=== PATIENT | female | born 1990 | race African-American/Black ===

== ENCOUNTER 2018-05-06 09:34 | Inpatient (IN) | payer OTHER ==
[2018-05-06] MEDS: NS / Oxytocin 40 units/1000ml 1,000 ML IV SCH ×2 (09:35→10:27)
--- NOTE | 2018-05-06 09:43 | PDOC.LDHP ---
Labor and Delivery H&P Chief complaint: contractions, loss of fluid HPI: [facility] at 8 cm in active labor. srom clear on ambulance. pnc at [facility] aidee reports no complications Current gestational age (weeks): 37 Dating criteria: other (pt report) Grav: 4 Para: 3 ( 3 ) Current complications: none Abnormal US findings: No Past Medical History: none Current medications: pre- vitamins Previous surgical history: none Allergies/Adverse Reactions: Allergies Allergy/AdvReac Type Severity Reaction Status Date / Time No Known Allergies Allergy Verified 05/03/17 20:12 Social history: none - Physical Exam Vital signs reviewed and normal: yes General: breathing through contractions Heart: RRR Lungs: nonlabored breathing Abdomen: NTTP Extremeties: no edema FHT: category 1 - Vaginal Exam cm dilated: 10 Effacement: 100% Station: 3+ - OB Labs Blood type: unknown RH: unknown Antibody Screen: unknown HIV: unknown RPR: unknown HEPSAg: unknown 1 hour GCT: unknown GBS: unknown Urine drug screen: not done Rubella: non-immune - Assessment L&D Assessment: term rupture in membranes - Plan Plan: admit to L&D (delivery imminent)
[2018-05-06] MEDS ORDERED: Diphenoxylate HCl/Atropine Tablet PO PRN (09:45)
[2018-05-06] MEDS ORDERED: Ondansetron HCl/PF 4 MG/2 ML Vial IVP PRN ×2 (09:45→09:51)
[2018-05-06] MEDS ORDERED: Lactated Ringer's 1,000 ML IV SCH (09:45)
[2018-05-06] MEDS ORDERED: HYDROcodone/Acetaminophen 5/325 mg Tablet PO PRN ×4 (09:45→09:51)
[2018-05-06] MEDS ORDERED: NS / Oxytocin 40 units/1000ml 1,000 ML IV PRN (09:45)
[2018-05-06] MEDS ORDERED: Promethazine HCl 25 MG/ML VIAL IM PRN ×2 (09:45→09:51)
[2018-05-06] MEDS ORDERED: Lidocaine 1% (PF) 30 ML VIAL SC PRN (09:45)
[2018-05-06] MEDS ORDERED: Butorphanol Tartrate 1 MG/ML VIAL SLOW IVP PRN (09:45)
[2018-05-06] MEDS ORDERED: Ibuprofen 800 MG TAB PO PRN (09:45)
[2018-05-06] MEDS ORDERED: Carboprost 250 MCG/ML AMP IM PRN (09:45)
--- NOTE | 2018-05-06 09:45 | PDOC.OPDEL ---
OB Operative/Delivery Note Delivery Dr/Surgeon: Eleuterio valdez ob hospitalist Pre-Delivery Diagnosis: active labor Procedure/Post Delivery Dx: spontaneous vaginal delivery Weeks gestation: 37 Anesthesia: none - Findings A Sex: male ( with bloody fluid at 0928. no gbs result. no time due to immminent delivery for gbs prophalaxis.) Weight: 0 oz (pending ) - 1 min: 8 - 5 min: 9 - Additional Findings/Plan Placenta delivered: spontaneous Repaired Obstetrical Laceration: none Estimated blood loss: 300 Compilations/Other Findings: uds and other no care labs sent Post delivery plan: routine recovery
[2018-05-06] MEDS ORDERED: Zolpidem Tartrate 5 MG TAB PO PRN (09:51)
[2018-05-06] MEDS ORDERED: Measles/Mumps/Rubella 10 MCG/0.5 ML VIAL SC ONE (09:51)
[2018-05-06] MEDS ORDERED: Lanolin Ointment 7 GM TUBE TOP PRN (09:51)
[2018-05-06] MEDS ORDERED: Adacel (T-DAP) 0.5 ML VIAL IM ONE (09:51)
[2018-05-06] MEDS ORDERED: Preparation H Ointment 28 GM TUBE PR PRN (09:51)
[2018-05-06] MEDS ORDERED: Benzocaine/Menthol 20-0.5% 60 ML CAN TOP PRN (09:51)
[2018-05-06] MEDS ORDERED: Bisacodyl 10 MG SUPP PR PRN (09:51)
[2018-05-06] MEDS ORDERED: Milk Of Magnesia 30 ML UDCUP PO PRN (09:51)
[2018-05-06 10:17] LABS: Amphetamine Not Detected (NotDetected); Barbiturates Screen Not Detected (NotDetected); Benzodiazepine Screen Not Detected (NotDetected); Cocaine Metabolite Screen Not Detected (NotDetected); Medtox Control Line Valid? VALID (VALID); Medtox Reader # READER 4; Methadone Not Detected (NotDetected); Methamphetamine Not Detected (NotDetected); Opiate Screen Not Detected (NotDetected); Oxycodone Screen Not Detected (NotDetected); Phencyclidine (PCP) Not Detected (NotDetected); THC/Cannabinoid Screen Detected (NotDetected); Tricyclic Screen Not Detected (NotDetected)
[2018-05-06 10:24] LABS: Hemoglobin 8.3 g/dL (12.0-16.0); Mean Corpuscular HGB CONC 32.2 g/dL (32.0-36.0); Mean Corpuscular Hemoglobin 24.2 pg (27.0-31.0); Mean Corpuscular Volume 75.2 fl (81.0-99.0); Mean Platelet Volume 9.6 fL (7.4-10.4); Platelet Count 164 thou/uL (130-400); RBC Distribution Width 18.6 % (11.5-14.5); Red Blood Cell (RBC) Count 3.44 mill/uL (4.20-5.40); White Blood Cell (WBC) Count 11.5 thou/uL (4.8-10.8)
[2018-05-06] MEDS: Ibuprofen 800 MG TAB PO SCH ×2 (10:26→21:08)
[2018-05-06 10:54] LABS: Syphilis Antibody Nonreactive (Nonreactive); Syphilis Antibody Index 0.05 S/CO (<1.00 Non-Reactive)
[2018-05-06 10:55] LABS: HBSAg Index 0.26 S/CO (0-0.99); HIV (1/2) Antibody/Antigen Non-Reactive (NonReactive); HIV 1/2 INDEX 0.13 S/CO (<1.00); Hep B Surf Ag Non-Reactive S/CO (NonReactive)
[2018-05-06 11:58] VITALS: BMI 30.2
[2018-05-06 12:15] LABS: Hep B Surf AB Reactive (NonReactive)
[2018-05-06 12:17] LABS: HBSAB Concentration 70.17 mIU/mL
[2018-05-06] MEDS ORDERED: diphenhydrAMINE 50 MG CAP PO SCH (17:00)
[2018-05-06] MEDS: Prenatal Vitamin 1 TAB PO SCH (17:21)
[2018-05-06] MEDS: Docusate Calcium (SURFAK) 240 MG CAP PO SCH ×2 (17:21→21:08)
[2018-05-06] MEDS ORDERED: predniSONE 5 MG TAB PO SCH (22:15)
[2018-05-06] MEDS: diphenhydrAMINE 25 MG CAP PO PRN (23:53)
[2018-05-07] MEDS: Ibuprofen 800 MG TAB PO SCH ×3 (04:04→21:06)
[2018-05-07] MEDS: diphenhydrAMINE 25 MG CAP PO PRN ×5 (04:04→23:45)
--- NOTE | 2018-05-07 07:06 | PDOC.PP ---
Post Progress Note Post Day #: 1 PO intake tolerated: yes Flatus: yes Ambulation: yes Vital Signs (12 hours) Temp Pulse Resp BP 05/07/18 04:00 98.4 F 85 16 129/63 05/07/18 00:00 97.9 F 82 16 120/85 05/06/18 20:00 98.1 F 79 16 123/70 Weight Weight 199 lb - Physical Examination General: NAD Cardiovascular: no m/r/g, RRR Respiratory: clear to auscultation bilaterally Abdominal: + bowel sounds, lochia Extremities: negative homans (B) Neurological: no gross focal deficits Psychiatric: A&Ox3, normal affect Result Diagrams: 05/06/18 09:59 Additional Labs: Post Labs Blood Type A POSITIVE 05/06/18 09:59 Hep Bs Antigen Non-Reactive S/CO (NonReactive) 05/06/18 09:59 (1) Normal spontaneous vaginal delivery Code(s): O80 - ENCOUNTER FOR FULL-TERM UNCOMPLICATED DELIVERY Status: Acute - Assessment/Plan rash resolving. will dc at 24 hr with medrol dose pack
[2018-05-07] MEDS: Docusate Calcium (SURFAK) 240 MG CAP PO SCH ×2 (09:24→21:06)
[2018-05-07] MEDS: Prenatal Vitamin 1 TAB PO SCH (09:24)
[2018-05-07] MEDS: predniSONE 5 MG TAB PO SCH ×2 (09:24→17:55)
[2018-05-08] MEDS: diphenhydrAMINE 25 MG CAP PO PRN ×3 (02:42→10:34)
[2018-05-08] MEDS: Ibuprofen 800 MG TAB PO SCH (05:33)
--- NOTE | 2018-05-08 07:39 | DIS ---
DATE OF ENCOUNTER: 05/08/2018 DATE OF ADMISSION: 05/06/2018 DATE OF DISCHARGE: 05/08/2018 ADMITTING DIAGNOSES: 1. Labor. 2. 36 and 7 weeks' gestation. 3. Rupture of membranes. DISCHARGE DIAGNOSES: 1. Labor. 2. 36 and 7 weeks' gestation. 3. Rupture of membranes. PROCEDURE: Term-spontaneous vaginal delivery. CONSULTATIONS: None. HOSPITAL COURSE: The patient is a 27-year-old, , female, who was followed at [facility] edmund Dickey, who presented to the emergency room in [place], and was transferred here to [place] in a ctive labor. On arrival, the patient was 8 cm dilated and quickly proceeded to delivery. The patien t had uncomplicated term spontaneous vaginal delivery. After recovery, the patient was sent to [facility] for recovery and care. Her recent and intrapartum and recent antepartum care has be en complicated by a rash that has been itching her. Dr. Mcclellan placed her on steroids and on Benadry l, which has been keeping this rash at bay. Today, is day 2. The patient reports today t hat her rash is doing a lot better, the swelling in her face and her lips is much improved and the it alessandro is improved with the Benadryl. Her bleeding is slowing down and has no other complaints. PHYSICAL EXAMINATION: VITAL SIGNS: Today, blood pressure is 127/63, temperature 98.1, pulse of 82, respiratory rate of 16. GENERAL: She appears to be in no acute distress. She is alert and oriented and cooperative and plea erin to interact with. HEAD: Normocephalic, atraumatic. ABDOMEN: Fundus is firm at the umbilicus. EXTREMITIES: Nontender, nonedematous. SKIN: She does have this macular erythematous rash with infrequent red macular lesions that are on h er arms and feet. No swelling noticeable in her face or her lips. Hemoglobin is 8.3, hematocrit 25.8, platelets 164,000. Patient is being discharged to home. Again, she has been counseled to follow up with [facility] in [place] in 6 weeks. 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 DISCHARGE MEDICATIONS: She will be discharged home with ibuprofen [id number] and Medrol Dosepa k.
[2018-05-08 07:56] VITALS: BP 128/84; TEMP 98.2
[2018-05-08] MEDS: Docusate Calcium (SURFAK) 240 MG CAP PO SCH (09:11)
[2018-05-08] MEDS: predniSONE 5 MG TAB PO SCH (09:11)
[2018-05-08] MEDS: Prenatal Vitamin 1 TAB PO SCH (09:11)
== END 2018-05-08 12:00 | disposition home or self-care (01) | DRG 775 ==
LOC: L&D 09:34 → 3SW 16:57
PROVIDERS: ADMIT Obstetrics & Gynecology; ATTEND Obstetrics & Gynecology
PROC: 10E0XZZ Delivery of Products of Conception, External Approach (ICD-10-PCS; principal; 2018-05-06)
DX: O99.72 Diseases of the skin and subcutaneous tissue complicating childbirth (principal); Z37.0 Single live birth; Z3A.37 37 weeks gestation of pregnancy; R21 Rash and other nonspecific skin eruption
CPT/HCPCS: 36415; 80306; 86706; 86762; 86780; 86850; 86900; 86901; 87340; 87389; 88307; 90707

== ENCOUNTER 2020-05-14 14:59 | Emergency (ER) | payer OTHER ==
[2020-05-15 15:05] LABS: SARS-CoV-2 MS2 Positive; SARS-CoV-2 N Gene Negative; SARS-CoV-2 S Gene Negative; SARS-CoV-2 orf1ab Negative
== END 2020-05-14 15:33 | disposition home or self-care (01) ==
LOC: ERS 14:59
DX: R05 Cough (principal); Z20.828 Contact with and (suspected) exposure to other viral communicable diseases
CPT/HCPCS: 87635; 99283; U0003